=== PATIENT | male | born 2000 | race Hispanic/Latino ===

== ENCOUNTER 2020-07-31 01:16 | Emergency (ER) | payer OTHER, SELFPAY ==
--- NOTE | 2020-07-31 04:37 | ER ---
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 Coronavirus screen: Client denies travel out of the [place] in the last 14 days. Ebola Screen: Patient negative for fever greater than or equal to 101.5 degrees Fahrenheit, and additional compatible Ebola Virus Disease symptoms Patient denies exposure to infectious person. Patient denies travel to an Ebola-affected area in the 21 days before illness onset. No symptoms or risks identified at this time. Initial Sepsis Screen: Does the patient meet any 2 criteria? No. Patient's initial sepsis screen is negative. Does the patient have a suspected source of infection? No. Patient's initial sepsis screen is negative. Risk Assessment: Do you want to hurt yourself or someone else? Patient reports no desire to harm self or others. Onset of symptoms was July 31, 2020. Care prior to arrival: None. Transition of care: patient was not received from another setting of care. 02:55 Acuity: TITUS 4 sg 02:55 Method Of Arrival: Ambulatory sg Triage Assessment: 03:00 General: Appears in no apparent distress. Behavior is calm, cooperative, appropriate ll2 for age. Historical: - Allergies: 02:57 No Known Allergies; sg - PSHx: 02:57 None; sg - Immunization history:: Adult Immunizations not immunized. - Social history:: Smoking status: Patient/guardian denies using. Screenin:00 Abuse screen: Denies threats or abuse. ll2 03:00 Nutritional screening: No deficits noted. Tuberculosis screening: No symptoms or risk ll2 factors identified. Fall Risk None identified. Assessment: 03:00 General: Appears in no apparent distress. Behavior is calm, cooperative, appropriate ll2 for age. Pain: Complains of pain in mouth. Neuro: Level of Consciousness is awake, alert, obeys commands, Oriented to person, place, time, situation. Cardiovascular: Patient's skin is warm and dry. Respiratory: Airway is patent Respiratory effort is even, unlabored, Respiratory pattern is regular, symmetrical. Derm: Skin is intact, is healthy with good turgor, Skin is pink, warm \T\ dry. Musculoskeletal: Circulation, motion, and sensation intact. Range of motion: intact in all extremities. Vital Signs: 02:55 BP 142 / 90; Pulse 89; Resp 18; Temp 97.7; Pulse Ox 100% on R/A; sg ED Course: 01:19 Patient arrived in ED. ag3 02:53 Ray Yanes MD is Attending Physician. kdr 02:56 Triage completed. sg 03:00 Patient has correct armband on for positive identification. Bed in low position. Call ll2 light in reach. Side rails up X 1. Pulse ox on. NIBP on. 03:00 Arm band placed on right wrist. ll2 04:30 No provider procedures requiring assistance completed. Patient did not have IV access ll2 during this emergency room visit. 04:31 Mikaela Owens MD is Referral Physician. kdr 04:46 Marietta Vivas, SANGEETHA is Primary Nurse. ll2 Administered Medications: No medications were administered Outcome: 04:30 Discharged to home ambulatory. ll2 04:30 Condition: stable 04:30 Discharge instructions given to patient, Instructed on discharge instructions, follow up and referral plans. medication usage, Demonstrated understanding of instructions, follow-up care, medications, Prescriptions given X 1. 04:36 Discharge ordered by . kdr 04:46 Patient left the ED. ll2 Signatures: Marshall Larkin RN RN Ray Yanes MD MD [facility] Marti Santos ag3 Marietta Vivas RN RN ll2
--- NOTE | 2020-07-31 04:37 | EDPHYS ---
Physician Documentation [facility] Name: Tad Partida Jr Age: 20 yrs Sex: Male : 2000 Arrival Date: 07/31/2020 Time: 01:19 Bed 15 Private MD: ED Physician Ray Yanes HPI: 07/31 03:03 This 20 yrs old Male presents to ER via Ambulatory with complaints of LOCKED kdr JAW. 03:03 The patient presents with Yawned and jaw locked at about 1:00 AM. The problem is kdr located in the mouth. Onset: The symptoms/episode began/occurred suddenly, at 01:00. Duration: The symptoms are continuous, and are unchanged since they started. Modifying factors: The symptoms are alleviated by nothing, the symptoms are aggravated by talking. Associated signs and symptoms: The patient has no apparent associated signs or symptoms. Severity of symptoms: At their worst the symptoms were mild, moderate, just prior to arrival, in the emergency department the symptoms are unchanged. The patient has experienced a previous episode. The patient has not recently seen a physician. Historical: - Allergies: 02:57 No Known Allergies; sg - PSHx: 02:57 None; sg - Immunization history:: Adult Immunizations not immunized. - Social history:: Smoking status: Patient/guardian denies using. ROS: 03:03 Constitutional: Negative for fever, chills, and weight loss, Eyes: Negative for injury, kdr pain, redness, and discharge, Neck: Negative for injury, pain, and swelling. 03:03 ENT: Positive for Mouth open and unable to close. Exam: 03:03 Constitutional: This is a well developed, well nourished patient who is awake, alert, kdr and in no acute distress. Head/Face: Normocephalic, atraumatic. Eyes: Pupils equal round and reactive to light, extra-ocular motions intact. Lids and lashes normal. Conjunctiva and sclera are non-icteric and not injected. Cornea within normal limits. Periorbital areas with no swelling, redness, or edema. Neck: Trachea midline, no thyromegaly or masses palpated, and no cervical lymphadenopathy. Supple, full range of motion without nuchal rigidity, or vertebral point tenderness. No Meningismus. Chest/axilla: Normal chest wall appearance and motion. Nontender with no deformity. No lesions are appreciated. 03:03 ENT: Mouth: Mouth locked open. Vital Signs: 02:55 BP 142 / 90; Pulse 89; Resp 18; Temp 97.7; Pulse Ox 100% on R/A; sg MDM: 03:03 Data reviewed: vital signs, nurses notes, lab test result(s), radiologic studies. kdr Counseling: I had a detailed discussion with the patient and/or guardian regarding: the historical points, exam findings, and any diagnostic results supporting the discharge/admit diagnosis, the need for outpatient follow up. 04:36 Patient medically screened. kdr Administered Medications: No medications were administered Disposition: 07/31/20 04:36 Discharged to Home. Impression: Temporomandibular joint disorders - Bilateral Joint Dislocation. - Condition is Stable. - Prescriptions for Ibuprofen 800 mg Oral Tablet - take 1 tablet by ORAL route every 8 hours As needed take with food; 9 tablet. - Medication Reconciliation Form, Thank You Letter form. - Follow up: Private Physician; When: 2 - 3 days; Reason: If symptoms return, Further diagnostic work-up, Recheck today's complaints, Continuance of care, Re-evaluation by your physician. Follow up: Mikaela Owens MD; When: 2 - 3 days; Reason: If symptoms return, Further diagnostic work-up, Recheck today's complaints, Continuance of care, Re-evaluation by your physician. - Problem is new. - Symptoms are resolved. Signatures: Marshall Larkin RN RN Ray Yanes MD MD [facility] Marietta Vivas RN RN ll2 Corrections: (The following items were deleted from the chart) 04:46 04:36 07/31/2020 04:36 Discharged to Home. Impression: Temporomandibular joint ll2 disorders - Bilateral Joint Dislocation. Condition is Stable. Forms are Medication Reconciliation Form, Thank You Letter, Antibiotic Education, Prescription Opioid Use. Follow up: Private Physician; When: 2 - 3 days; Reason: If symptoms return, Further diagnostic work-up, Recheck today's complaints, Continuance of care, Re-evaluation by your physician. Follow up: Mikaela Owens; When: 2 - 3 days; Reason: If symptoms return, Further diagnostic work-up, Recheck today's complaints, Continuance of care, Re-evaluation by your physician. Problem is new. Symptoms are resolved. kdr
[2020-07-31 04:50] VITALS: BP 142/90; TEMP 97.7; O2SAT 100
== END 2020-07-31 04:46 | disposition home or self-care (01) ==
LOC: ER 01:16
DX: S03.03XA Dislocation of jaw, bilateral, initial encounter (principal); X58.XXXA Exposure to other specified factors, initial encounter
CPT/HCPCS: 99283

== ENCOUNTER → 2021-06-13 | Emergency (ER) | payer SELFPAY ==
[~2021-06-13] MED LIST: POTASSIUM CL SA 10 MEQ TAB PO ONE
--- OUTSIDE RECORDS SUMMARY | 2021-06-13 02:28 | XMS REPORT | Continuity of Care Document ---
:2000 Author Organization [facility] t Address [address] [place] [address] Care Team Providers Name Role Phone Anabella MENJIVAR Primary Care Physician Unavailable Sahil KHAN Attending Clinician Unavailable Sahil Khan DO Attending Clinician Payers Payer Name Policy Type Policy Number Effective Date Expiration Date S nathanael [facility] - [id number] 2017 00:00:00 OUT OF STATE Problems This patient has no known problems. Allergies, Adverse Reactions, Alerts Allergy Allergy Status Severity Reaction(s) Onset Inactive Treating Comm ents Source Name Type Date Date Clinician NO KNOWN Drug Active Univers ALLERGIE Class ity of [facility] Social History Social Habit Start Date Stop Date Quantity Comments Source Exposure to Not sure [facility] SARS-CoV-2 (event) Medica l Branch Sex Assigned At [birth year] [facility] 00:00:00 00:00:00 Medical Branch Smoking Status Start Date Stop Date Source Unknown if ever smoked [facility] Medications Ordered Filled Start Stop Current Ordering Indication Dosage Frequency Signature Comments Components Source Medication Medication Date Date Medication? Clinician (SIG) Name Name ibuprofen Yes 800mg Take 1 Unive rs 800 mg 5-01 tablet by ity of tablet 00:00: mouth [place] 00 every 8 Medical (eight) Branch hours as needed (PAIN). Vital Signs Vital Name Observation Time Observation Value Comments Source Systolic blood 2021-06-09 17:46:00 154 mm[Hg] Univer sity of pressure [facility] Diastolic blood 2021-06-09 17:46:00 93 mm[Hg] Unive rsity of pressure [facility] Heart rate 2021-06-09 17:45:00 119 /min [facility] Body temperature 2021-06-09 17:45:00 38.67 Cony [facility] Res[facility] rate 2021-06-09 17:45:00 17 /min [facility] Body weight 2021-06-09 17:45:00 117.935 kg [facility] Oxygen saturation in 2021-06-09 17:45:00 96 /min [facility] Arterial blood by [facility] Pulse oximetry Branch Procedures Procedure Date / Time Performed Performing Clinician Sour e NOTICE OF PRIVACY 2021-06-09 17:41:31 Doctor Unassigned, No Univ [facility] PRACTICES Name Medical [place] CONSENT/REFUSAL FOR 2021-06-09 17:40:04 Doctor Unassigned, No [facility] AND Name Medical Branch TREATMENT Encounters Start End Encounter Admission Attending Care Care Encounter Source Date/Time Date/Time Type Type Clinicians Facility Department ID 2021-06-09 2021-06-09 Emergency X ERIN [facility] ERT [id number] Univers 11:47:00 12:30:00 GILMA nash [facility] 2021-06-09 2021-06-09 Emergency Erin [facility] [id number] Univers 11:47:00 12:30:00 Gilma AKERS [id number] charity [facility] [id number] [facility] [id number] [facility] 084 Branch Results This patient has no known results.
== END | disposition left against medical advice (07) ==
LOC: ER 02:26
DX: Z02.9 Encounter for administrative examinations, unspecified (principal)

== ENCOUNTER 2021-08-22 23:48 | Emergency (ER) | payer OTHER, SELFPAY ==
--- OUTSIDE RECORDS SUMMARY | 2021-08-22 23:50 | XMS REPORT | Continuity of Care Document ---
:2000 Author Organization [facility] t Address [address] [place] [address] Care Team Providers Name Role Phone Anabella MENJIVAR Primary Care Physician Unavailable Sahil KHAN Attending Clinician Unavailable Sahil Khan DO Attending Clinician Payers Payer Name Policy Type Policy Number Effective Date [facility] Date [id number] 00:00:00 OUT OF STATE Problems This patient has no known problems. Allergies, Adverse Reactions, Alerts Allergy Allergy Status Severity Reaction(s) Onset Inactive Treating Comm ents Source Name Type Date Date Clinician NO KNOWN Drug Active Univers ALLERGIE Class ity of [facility] Social History Social Habit Start Date Stop Date Quantity Comments Source Exposure to Not sure [facility] SARS-CoV-2 (event) Medica l Branch Sex Assigned At [birth year] [facility] 00:00:00 00:00:00 Medical Branch Smoking Status Start Date Stop Date Source Unknown if ever smoked [facility] Medications Ordered Filled Start Stop Current Ordering Indication Dosage Frequency Signature Comments Components Source Medication Medication Date Date Medication? Clinician (SIG) Name Name ibuprofen Yes 800mg Take 1 Unive rs 800 mg 5-01 tablet by ity of tablet 00:00: mouth [place] 00 every 8 Medical (eight) Branch hours as needed (PAIN). Vital Signs Vital Name Observation Time Observation Value Comments Source Systolic blood 2021-06-09 17:46:00 154 mm[Hg] Univer sity of pressure [facility] Diastolic blood 2021-06-09 17:46:00 93 mm[Hg] Unive rsity of pressure [facility] Heart rate 2021-06-09 17:45:00 119 /min [facility] Body temperature 2021-06-09 17:45:00 38.67 Cony [facility] Respiratory rate 2021-06-09 17:45:00 17 /min [facility] Body weight 2021-06-09 17:45:00 117.935 kg [facility] Oxygen saturation in 2021-06-09 17:45:00 96 /min [facility] Arterial blood by [facility] Pulse oximetry Branch Procedures Procedure Date / Time Performed Performing Clinician Sour e NOTICE OF PRIVACY 2021-06-09 17:41:31 Doctor Unassigned, No Univ [facility] PRACTICES Name Medical Branch CONSENT/REFUSAL FOR 2021-06-09 17:40:04 Doctor Unassigned, No Un [facility] DIAGNOSIS AND Name Medical Branch TREATMENT Encounters Start End Encounter Admission Attending Care Care Encounter Source Date/Time Date/Time Type Type Clinicians Facility Department ID 2021-06-09 2021-06-09 Emergency X ERIN DCALE ERT [id number] Univers 11:47:00 12:30:00 GILMA nash [facility] 2021-06-09 2021-06-09 Emergency Erin [facility] [id number] Univers 11:47:00 12:30:00 Gilma AKERS [id number] charity [facility] [id number] [facility] [id number] [facility] 084 Branch Results This patient has no known results.
--- NOTE | 2021-08-23 00:58 | ER ---
Nurse's Notes [facility] Name: Tad Partida Jr Age: 21 yrs Sex: Male : 2000 Arrival Date: 08/22/2021 Time: 23:50 Bed Waiting Private MD: Diagnosis: Presentation: 08/23 00:57 Chief complaint: Attempted to call patient in lobby. No answer. tw5 ED Course: 08/22 23:50 Patient arrived in ED. ag3 Administered Medications: No medications were administered Outcome: 08/23 00:57 Patient left the ED. tw5 Signatures: Marti Santos ag3 Anisa Weir tw5
== END 2021-08-23 00:57 | disposition left against medical advice (07) ==
LOC: ER 23:48
DX: Z53.21 Procedure and treatment not carried out due to patient leaving prior to being seen by health care provider (principal)
CPT/HCPCS: 99281

== ENCOUNTER 2022-03-03 13:15 | Emergency (ER) | payer OTHER, SELFPAY ==
--- OUTSIDE RECORDS SUMMARY | 2022-03-03 13:20 | XMS REPORT | Continuity of Care Document ---
:2000 Author Organization [facility] t Address [address] [place] [address] Care Team Providers Name Role Phone ROSSY MENJIVAR Primary Care Physician Unavailable MICHELLE WHITING Attending Clinician Unavailable Michelle Estevez Attending Clinician ANGÉLICA DIEGO Attending Clinician Unavailable Angélica Diego MD Attending Clinician GILMA KHAN Attending Clinician Unavailable Gilma Khan DO Attending Clinician MICHELLE WHITING Admitting Clinician Unavailable Payers Payer Name Policy Type Policy Number Effective Date Expiration Date S [facility] - [id number] 2017 00:00:00 OUT OF STATE Problems Condition Condition Condition Status Onset Resolution Last Treating Co mments Source Name Details Category Date Date Treatment Clinician Date No known No known Disease Unive rs active active ity of problems problems [facility] Allergies, Adverse Reactions, Alerts Allergy Allergy Status Severity Reaction(s) Onset Inactive Treating Comm ents Source Name Type Date Date Clinician NO KNOWN Drug Active Univers ALLERGIE Class ity of S [facility] Social History Social Habit Start Date Stop Date Quantity Comments Source Exposure to Not sure [facility] SARS-CoV-2 (event) Medica l Branch Sex Assigned At [birth year] [facility] [place] 00:00:00 00:00:00 Medical Branch Smoking Status Start Date Stop Date Source Unknown if ever smoked [facility] Medications Ordered Filled Start Stop Current Ordering Indication Dosage Frequency Signature Comments Components Source Medication Medication Date Date Medication? Clinician (SIG) Name Name meclizine 25mg 25 mg, Unive rs (TRAVEL-EAS 17 08-29 Oral, ity of E 04:30: 03:35 ONCE, 1 [place] (MECLIZINE) 00 :00 dose, On Medi [facility] ) tablet 25 Wed Branch mg 08/28/21 at 2330, ZOLTAN meclizine Yes [id number] 25mg Take 1 U nivers 25 mg 08-29 tablet by ity of tablet 00:00: mouth 3 [place] 00 (three) Medical times Branch daily as needed for Dizziness. ibuprofen Yes 800mg Take 1 Unive rs 800 mg 5-01 tablet by ity of tablet 00:00: mouth [place] 00 every 8 Medical (eight) Branch hours as needed (PAIN). ibuprofen Yes 800mg Take 1 Unive rs 800 mg 5-01 tablet by ity of tablet 00:00: mouth [place] 00 every 8 Medical (eight) Branch hours as needed (PAIN). ibuprofen Yes 800mg Take 1 Unive rs 800 mg 5-01 tablet by ity of tablet 00:00: mouth [place] 00 every 8 Medical (eight) Branch hours as needed (PAIN). Vital Signs Vital Name Observation Time Observation Value Comments Source Systolic blood 2021-08-29 05:28:00 135 mm[Hg] Univer sity of pressure [facility] Diastolic blood 2021-08-29 05:28:00 79 mm[Hg] Unive rsity of [facility] Heart rate 2021-08-29 05:28:00 69 /min [facility] Respiratory rate 2021-08-29 05:28:00 18 /min [facility] Oxygen saturation in 2021-08-29 05:28:00 98 /min [facility] Arterial blood by [facility] Pulse oximetry Branch Body temperature 2021-08-29 02:30:00 37.06 Cony [facility] Body height 2021-08-29 02:30:00 175.3 cm [facility] Body weight 2021-08-29 02:30:00 127.461 kg [facility] [place] [facility] BMI 2021-08-29 02:30:00 41.50 kg/m2 [facility] [place] [facility] Systolic blood 2021-08-23 08:50:00 145 mm[Hg] Univer sity of [facility] [place] [facility] Diastolic blood 2021-08-23 08:50:00 98 mm[Hg] Unive rsity of [facility] [place] [facility] Heart rate 2021-08-23 08:50:00 95 /min [facility] [place] [facility] Respiratory rate 2021-08-23 08:50:00 18 /min Univ ersity of [facility] Branch Oxygen saturation in 2021-08-23 08:50:00 97 /min University of Arterial blood by [facility] Pulse oximetry Branch Body temperature 2021-08-23 06:51:22 36.39 Cony [facility] [place] [facility] Body height 2021-08-23 06:49:00 175.3 cm [facility] [place] [facility] Body weight 2021-08-23 06:49:00 129.275 kg [facility] [place] [facility] BMI 2021-08-23 06:49:00 42.09 kg/m2 [facility] [place] [facility] Systolic blood 2021-06-09 17:46:00 154 mm[Hg] Univer sity of [facility] [place] [facility] Diastolic blood 2021-06-09 17:46:00 93 mm[Hg] Unive rsity of [facility] [place] [facility] Heart rate 2021-06-09 17:45:00 119 /min [facility] [place] [facility] Body temperature 2021-06-09 17:45:00 38.67 Cony [facility] [place] [facility] Respiratory rate 2021-06-09 17:45:00 17 /min [facility] [place] [facility] Body weight 2021-06-09 17:45:00 117.935 kg Universi ty of [facility] Oxygen saturation in 2021-06-09 17:45:00 96 /min University of Arterial blood by [facility] Pulse oximetry Branch Procedures Procedure Date / Time Performing Clinician Source Performed CT HEAD WO CONTRAST 2021-08-29 04:04:11 [facility] TROPONIN I 2021-08-29 03:47:00 Michelle Whiting [facility] COMP. METABOLIC PANEL 2021-08-29 03:47:00 Michelle Whiting [facility] ([id number]) [facility] CBC WITH DIFF 2021-08-29 03:47[facility]00 [facility]MINAL PRO-BNP 2021-08-29 03:47:00 Michelle Whiting [facility] URINALYSIS 2021-08-29 03:40:00 Iona [facility] NOTICE OF PRIVACY 2021-08-29 02:23:00 Doctor Unassigned, No Univ ersity [facility] CONSENT/REFUSAL FOR 2021-08-29 02:22:16 Doctor Unassigned, No [facility] [place] [facility] T[facility] COMP. METABOLIC PANEL 2021-08-23 07:21:00 Angélica Diego [facility] ([id number]) [facility] Branch ETHANOL 2021-08-23 07:21:00 Angélica Diego [facility] CBC WITH DIFF 2021-08-23 07:21:00 Frandy Angélica [facility] URINALYSIS 2021-08-23 07:21:00 Frandy [facility] URINE DRUG (IMMUNOASSAY) 2021-08-23 07:21:[address] [facility] DRUG Medical [facility] nch SCREEN W/O REFLEX NOTICE OF PRIVACY 2021-08-23 06:34:46 Doctor Unassigned, No Univ ersity of [facility] CONSENT/REFUSAL FOR 2021-08-23 06:34:24 Doctor Unassigned, No [facility] [place] [facility]ATMENT Name [facility] Branch NOTICE OF PRIVACY 2021-06-09 17:41:31 Doctor Unassigned, No Univ ersity of [facility] CONSENT/REFUSAL FOR 2021-06-09 17:40:04 Doctor Unassigned, No [facility] [place] [facility] Branch Encounters Start End Encounter Admission Attending Care Care Encounter Source Date/Time Date/Time Type Type Clinicians Facility Department ID 2021-08-28 2021-08-29 Emergency X IONA [facility] ERT [id number] Univers 21:40:00 00:32:00 MICHELLE clay [facility] 2021-08-28 2021-08-29 [facility] [id number] Univers 21:40:00 00:32:00 Michelle AKERS [id number] i ty of [place] [id number] [facility] [id number] [address] 2021-08-23 2021-08-23 [facility] [id number] Univers 00:43:00 02:56:[address] [facility] 2021-08-23 2021-08-23 [facility] [id number] Univers 00:43:00 02:56:00 Angélica AKERS [id number] i ty of [place] [id number] [facility] [id number] [address] 2021-06-09 2021-06-09 [facility] [id number] Univers 11:47:00 12:30:[address] [facility] 2021-06-09 2021-06-09 [facility] [id number] Univers 11:47:00 12:30:00 Gilma AKERS [id number] ity [facility] [id number] [facility] [id number] [address] Results Test Description Test Time Test Comments Results Result Comments Source N-TERMINAL PRO-BNP 2021-08-29 04:51:02 Test Item Value Reference Range Interpretation Comme nts NT-proBNP (test code = <11 See_Comment [Aut omated message] The [id number]) system which ge nerated this result tra nsmitted reference range : <=125 pg/mL. The refe rence range was not used to interpret this result as normal/abnormal . ELMO (test code = ELMO) Biotin has been reported to cause a negative bias, interpret results relative to patient's use of biotin. Lab Interpretation (test Normal code = 84372-3) [facility] WITH [id number] 04:50:06 Test Item Value Reference Range Interpretation Comments WBC (test code = See_Comment H [Automated 6690-2) message] The sy stem which generated this result transmitted reference range : 4.20 - 10.70 10*3/?L. The reference range was not used to interpret this result as normal/abnormal . RBC (test code = See_Comment [Automated 789-8) message] The sy stem which generated this result transmitted reference range : 4.26 - 5.52 10*6/?L. The reference range was not used to interpret this result as normal/abnormal . HGB (test code = 16.0 g/dL 12.2-16.4 718-7) HCT (test code = 45.6 % 38.4-49.3 4544-3) MCV (test code = 86.4 fL 81.7-95.6 787-2) MCH (test code = 30.3 pg 26.1-32.7 785-6) MCHC (test code = 35.1 g/dL 31.2-35.0 H 786-4) RDW-SD (test code = 40.7 fL 38.5-51.6 44494-1) RDW-CV (test code = 13.0 % 12.1-15.4 788-0) PLT (test code = See_Comment [Automated 777-3) message] The sy stem which generated this result transmitted reference range : 150 - 328 10*3/ ?L. The reference r tutu was not used to interpret this result as normal/abnormal . MPV (test code = 10.2 fL 9.8-13.0 91179-3) NRBC/100 WBC (test See_Comment [Automat ed code = 1117503063) message] The system which generated this result transmitted reference range : 0.0 - 10.0 /100 WBCs. The refer ence range was not u sed to interpret th is result as normal/abnormal . NRBC x10^3 (test code <0.01 See_Comment [Auto mated = 9543131719) message] The s ystem which generated this result transmitted reference range : 10*3/?L. The reference range was not used to interpret this result as normal/abnormal . GRAN MAT (NEUT) % 46.5 % (test code = 770-8) IMM GRAN % (test code 0.30 % = 5565512887) LYMPH % (test code = 41.4 % 736-9) MONO % (test code = 10.2 % 5905-5) EOS % (test code = 0.9 % 713-8) BASO % (test code = 0.7 % 706-2) GRAN MAT x10^3(ANC) 5.91 10*3/uL 1.99-6.95 (test code = 1803265477) IMM GRAN x10^3 (test 0.04 10*3/uL 0.00-0.06 code = 7384889013) LYMPH x10^3 (test code 5.27 10*3/uL 1.09-3.23 H = 731-0) MONO x10^3 (test code 1.30 10*3/uL 0.36-1.02 H = 742-7) EOS x10^3 (test code = 0.11 10*3/uL 0.06-0.53 711-2) BASO x10^3 (test code 0.09 10*3/uL 0.01-0.09 = 704-7) REACT LYMPHS (test Rare code = 7933093200) Lab Interpretation Abnormal (test code = 64734-7) [facility] [id number] 04:38:56 Test Item Value Reference Interpretation Comments Range TROPONIN I (test 0.003 ng/mL See_Comment [Automated code = 3144199347) message] The system which generated this result transmitted reference range : <=0.034. The reference range was not used to interpret this result as normal/abnormal . ELMO (test code = Reference (Normal) ELMO) Range (defined by the 99th percentile reference limit): <= 0.034 ng/mL Note: Cardiac troponin begins to rise 3-4 hours after the onset of ischemia. Repeat in 4-6 hours if the sample was drawn within 3-4 hours of the onset of the symptom and found normal. Diagnosis of myocardial injury is made with acute changes in cTn concentrations with at least one serial sample above the 99th percentile upper reference limit (URL), taken together with the patient's clinical presentation. Biotin has been reported to cause a negative bias, interpret results relative to patient's use of biotin. Lab Interpretation Normal (test code = 33226-8) [facility]. METABOLIC PANEL ([id number])2021-08-29 04:19:34 Test Item Value Reference Range Interpretation Comments NA (test code = 140 mmol/L 135-145 8340744143) K (test code = 4.1 mmol/L 3.5-5.0 9840191162) CL (test code = 102 mmol/L 98-108 1360514424) CO2 TOTAL (test code = 26 mmol/L 23-31 3678028821) AGAP (test code = 2-16 4844453160) BUN (test code = 14 mg/dL 7-23 0123951825) GLUCOSE (test code = 89 mg/dL 70-110 4606553022) CREATININE (test code = 0.70 mg/dL 0.60-1.25 0255140672) TOTAL BILI (test code = 0.6 mg/dL 0.1-1.3 4724637861) CALCIUM (test code = 9.0 mg/dL 8.6-10.6 3637279326) T PROTEIN (test code = 8.2 g/dL 6.3-8.2 4794962499) ALBUMIN (test code = 4.9 g/dL 3.5-5.0 1814574327) ALK PHOS (test code = 60 U/L 34-122 3888832514) ALTv (test code = 126 U/L 5-50 H 1742-6) AST(SGOT) (test code = 52 U/L 13-40 H 7539549418) eGFR (test code = mL/min/1.73m2 7301788419) ELMO (test code = ELMO) Association of Glomerular Filtration Rate (GFR) and Staging of Kidney Disease* + --+ --+ ------+| GFR (mL/min/1.73 m2) ?| With Kidney Damage ?| ?Without Kidney Damage+ --------+ --------+ +| ?>90 ?| ?Stage one ?| ? Normal ?+ ---+ ---+ -------+| ?60-89 ?| ?Stage two ?| ? Decreased GFR ? + --+ --+ ------+| ?30-59 ?| ?Stage three ?| ? Stage three ? + --+ --+ ------+| ?15-29 ?| ?Stage four ? | ? Stage four ?+ ---+ ---+ -------+| ?<15 (or dialysis) ? ?| ?Stage five ? | ? Stage five ?+ ---+ ---+ -------+ *Each stage assumes the associated GFR level has been in effect for at least three months. ?Stages 1 to 5, with or without kidney disease, indicate chronic kidney disease. Notes: Determination of stages one and two (with eGFR >59mL/min/1.73 m2) requires estimation of kidney damage for at least three months as defined by structural or functional abnormalities of the kidney, manifested by either:Pathological abnormalities or Markers of kidney damage (including abnormalities in the composition of the blood or urine or abnormalities in imaging tests). Lab Interpretation Abnormal (test code = 53820-7) [facility] 08:18:12 Test Item Value Reference Range Interpretation Comments ALCOHOL (test code = <10 mg/dL 2467665291) ELMO (test code = ELMO) <10 Cykhhlva42-030 Toxic>100 Depression of CLAY ARTIST>400 Fatalities Reported [facility] MET[facility]OLIC PANEL ([id number])2021-08-23 08:12:10 Test Item Value Reference Range Interpretation Comments NA (test code = 137 mmol/L 135-145 5222949120) K (test code = 4.2 mmol/L 3.5-5.0 4968116627) CL (test code = 99 mmol/L 98-108 6182907132) CO2 TOTAL (test code = 29 mmol/L 23-31 6440174834) AGAP (test code = 2-16 6485211962) BUN (test code = 17 mg/dL 7-23 0083525492) GLUCOSE (test code = 162 mg/dL 70-110 H 8659739602) CREATININE (test code = 0.67 mg/dL 0.60-1.25 6968226962) TOTAL BILI (test code = 0.6 mg/dL 0.1-1.0 0268874319) CALCIUM (test code = 9.0 mg/dL 8.6-10.6 1801544206) T PROTEIN (test code = 7.3 g/dL 6.3-8.2 7672578728) ALBUMIN (test code = 4.5 g/dL 3.5-5.0 7225686041) ALK PHOS (test code = 67 U/L 34-122 6487346929) ALTv (test code = 120 U/L 5-50 H 1742-6) AST(SGOT) (test code = 47 U/L 13-40 H 2836253510) eGFR (test code = mL/min/1.73m2 8482339786) ELMO (test code = ELMO) Association of Glomerular Filtration Rate (GFR) and Staging of Kidney Disease* + --+ --+ ------+| GFR (mL/min/1.73 m2) ?| With Kidney Damage ?| ?Without Kidney Damage+ --------+ --------+ +| ?>90 ?| ?Stage one ?| ? Normal ?+ ---+ ---+ -------+| ?60-89 ?| ?Stage two ?| ? Decreased GFR ? + --+ --+ ------+| ?30-59 ?| ?Stage three ?| ? Stage three ? + --+ --+ ------+| ?15-29 ?| ?Stage four ? | ? Stage four ?+ ---+ ---+ -------+| ?<15 (or dialysis) ? ?| ?Stage five ? | ? Stage five ?+ ---+ ---+ -------+ *Each stage assumes the associated GFR level has been in effect for at least three months. ?Stages 1 to 5, with or without kidney disease, indicate chronic kidney disease. Notes: Determination of stages one and two (with eGFR >59mL/min/1.73 m2) requires estimation of kidney damage for at least three months as defined by structural or functional abnormalities of the kidney, manifested by either:Pathological abnormalities or Markers of kidney damage (including abnormalities in the composition of the blood or urine or abnormalities in imaging tests). Lab Interpretation Abnormal (test code = 53284-0) [facility] WITH [id number] 07:59:12 Test Item Value Reference Range Interpretation Comments WBC (test code = See_Comment [Automated 4304-2) message] The sy stem which generated this result transmitted reference range : 4.20 - 10.70 10*3/?L. The reference range was not used to interpret this result as normal/abnormal . RBC (test code = See_Comment [Automated 789-8) message] The sy stem which generated this result transmitted reference range : 4.26 - 5.52 10*6/?L. The reference range was not used to interpret this result as normal/abnormal . HGB (test code = 15.0 g/dL 12.2-16.4 718-7) HCT (test code = 43.4 % 38.4-49.3 4544-3) MCV (test code = 87.1 fL 81.7-95.6 787-2) MCH (test code = 30.1 pg 26.1-32.7 785-6) MCHC (test code = 34.6 g/dL 31.2-35.0 786-4) RDW-SD (test code = 42.7 fL 38.5-51.6 44394-6) RDW-CV (test code = 13.4 % 12.1-15.4 788-0) PLT (test code = See_Comment [Automated 777-3) message] The sy stem which generated this result transmitted reference range : 150 - 328 10*3/ ?L. The reference r tutu was not used to interpret this result as normal/abnormal . MPV (test code = 10.4 fL 9.8-13.0 91163-5) NRBC/100 WBC (test See_Comment [Automat ed code = 2760464532) message] The system which generated this result transmitted reference range : 0.0 - 10.0 /100 WBCs. The refer ence range was not u sed to interpret th is result as normal/abnormal . NRBC x10^3 (test code <0.01 See_Comment [Auto mated = 3304396817) message] The s ystem which generated this result transmitted reference range : 10*3/?L. The reference range was not used to interpret this result as normal/abnormal . GRAN MAT (NEUT) % 43.3 % (test code = 770-8) IMM GRAN % (test code 0.20 % = 7185180115) LYMPH % (test code = 45.2 % 736-9) MONO % (test code = 8.6 % 5905-5) EOS % (test code = 1.9 % 713-8) BASO % (test code = 0.8 % 706-2) GRAN MAT x10^3(ANC) 3.71 10*3/uL 1.99-6.95 (test code = 0501546281) IMM GRAN x10^3 (test <0.03 0.00-0.06 code = 0810598746) LYMPH x10^3 (test code 3.88 10*3/uL 1.09-3.23 H = 731-0) MONO x10^3 (test code 0.74 10*3/uL 0.36-1.02 = 742-7) EOS x10^3 (test code = 0.16 10*3/uL 0.06-0.53 711-2) BASO x10^3 (test code 0.07 10*3/uL 0.01-0.09 = 704-7) Lab Interpretation Abnormal (test code = 86684-7) [facility]"
[2022-03-03] MEDS ORDERED: LIDOCAINE 1% MPF 30 ML VIAL ONE (15:21)
--- NOTE | 2022-03-03 16:20 | ER ---
Nurse's Notes [facility] Name: Tad Partida Jr Age: 21 yrs Sex: Male : 2000 Arrival Date: 03/03/2022 Time: 13:18 Bed 11 Private MD: Diagnosis: Laceration without foreign body of unspecified finger without damage to nail Presentation: 03/03 14:25 Chief complaint: Patient states: Cut R thumb while working on vehicle, no active ph bleeding noted. Coronavirus screen: Vaccine status: Patient reports being unvaccinated. Ebola Screen: No symptoms or risks identified at this time. Initial Sepsis Screen: Does the patient meet any 2 criteria? No. Patient's initial sepsis screen is negative. Does the patient have a suspected source of infection? No. Patient's initial sepsis screen is negative. Risk Assessment: Do you want to hurt yourself or someone else? Patient reports no desire to harm self or others. Onset of symptoms was March 03, 2022. 14:25 Method Of Arrival: Ambulatory ph 14:25 Acuity: TITUS 4 ph Triage Assessment: 14:29 General: Appears in no apparent distress. Behavior is calm, cooperative. Pain: ph Complains of pain in palmar aspect of distal phalanx of right thumb. Musculoskeletal: Circulation, motion, and sensation intact. Capillary refill < 3 seconds. Injury Description: Laceration sustained to palmar aspect of distal phalanx of right thumb. Historical: - Allergies: 14:28 No Known Allergies; ph - PMHx: 14:28 None; ph - PSHx: 14:28 None; ph - Immunization history:: Adult Immunizations unknown. - Social history:: Smoking status: Patient denies any tobacco usage or history of. Screenin:03 Abuse screen: Denies threats or abuse. Denies injuries from another. Nutritional ph screening: No deficits noted. Tuberculosis screening: No symptoms or risk factors identified. Fall Risk None identified. Assessment: 15:03 General: SEE TRIAGE ASSESSMENT. ph Vital Signs: 14:25 BP 139 / 78; Pulse 82; Resp 18; Temp 97.8; Pulse Ox 100% on R/A; Weight 121.56 kg; ph Height 5 ft. 8 in. (172.72 cm); 16:28 BP 143 / 92; Pulse 73; Resp 16; Pulse Ox 100% on R/A; dh3 14:25 Body Mass Index 40.75 (121.56 kg, 172.72 cm) ph ED Course: 13:18 Patient arrived in ED. rg4 14:00 Josiane Crenshaw FNP-C [facility]. snw 14:00 Mikaela Ayala MD is Attending Physician. snw 14:28 Triage completed. ph 14:28 Arm band placed on Patient placed in an exam room. ph 15:03 Elke Hart, RN is Primary Nurse. ph 15:04 Patient has correct armband on for positive identification. Bed in low position. Call light in reach. Administered Medications: 15:45 Drug: Lidocaine (1 %) 5 ml {Note: administered by ERP.} Volume: 5 ml; Route: jl7 Infiltration; 16:20 Follow up: Response: No adverse reaction jl7 Outcome: 16:19 Discharge ordered by . snw 16:46 Patient left the ED. ph Signatures: Josiane Crenshaw FNP-C CREDIT DEPARTMENT MANAGER-Csnw Elke Hart, RN RN Rosana Monaco rg4 Jason Huang RN RN jl7 Parul Owens 3
--- NOTE | 2022-03-03 16:20 | EDPHYS ---
Physician Documentation [facility] Name: Tad Partida Jr Age: 21 yrs Sex: Male : 2000 Arrival Date: 03/03/2022 Time: 13:18 Bed 11 Private MD: ED Physician Mikaela Ayala HPI: 03/03 16:40 This 21 yrs old Male presents to ER via Ambulatory with complaints of Finger snw Injury. 16:40 The patient or guardian reports injury. The complaints affect the palmar aspect of snw medial phalanx of right thumb. Context: The problem was sustained at home, resulted from working on the car door and it slipped and cut his finger. Onset: The symptoms/episode began/occurred suddenly, just prior to arrival. Associated signs and symptoms: The patient has no apparent associated signs or symptoms. Severity of symptoms: At their worst the symptoms were mild. The patient has experienced a previous episode. The patient has not recently seen a physician. up to date on Tetanus vaccine. Historical: - Allergies: 14:28 No Known Allergies; ph - PMHx: 14:28 None; ph - PSHx: 14:28 None; ph - Immunization history:: Adult Immunizations unknown. - Social history:: Smoking status: Patient denies any tobacco usage or history of. ROS: 16:39 Constitutional: Negative for fever, chills, and weight loss, Eyes: Negative for injury, snw pain, redness, and discharge, ENT: Negative for injury, pain, and discharge, Neck: Negative for injury, pain, and swelling, Cardiovascular: Negative for chest pain, palpitations, and edema, Respiratory: Negative for shortness of breath, cough, wheezing, and pleuritic chest pain, Abdomen/GI: Negative for abdominal pain, nausea, vomiting, diarrhea, and constipation, Back: Negative for injury and pain, : Negative for injury, bleeding, discharge, and swelling, MS/Extremity: Negative for injury and deformity, Neuro: Negative for headache, weakness, numbness, tingling, and seizure, Psych: Negative for depression, anxiety, suicide ideation, homicidal ideation, and hallucinations. 16:39 Skin: Positive for laceration(s), of the palmar aspect of medial phalanx of right thumb. Exam: 16:38 Constitutional: This is a well developed, well nourished patient who is awake, alert, snw and in no acute distress. Head/Face: Normocephalic, atraumatic. Eyes: Pupils equal round and reactive to light, extra-ocular motions intact. Lids and lashes normal. Conjunctiva and sclera are non-icteric and not injected. Cornea within normal limits. Periorbital areas with no swelling, redness, or edema. ENT: Nares patent. No nasal discharge, no septal abnormalities noted. Tympanic membranes are normal and external auditory canals are clear. Oropharynx with no redness, swelling, or masses, exudates, or evidence of obstruction, uvula midline. Mucous membranes moist. Neck: Trachea midline, no thyromegaly or masses palpated, and no cervical lymphadenopathy. Supple, full range of motion without nuchal rigidity, or vertebral point tenderness. No Meningismus. Chest/axilla: Normal chest wall appearance and motion. Nontender with no deformity. No lesions are appreciated. Cardiovascular: Regular rate and rhythm with a normal S1 and S2. No gallops, murmurs, or rubs. Normal PMI, no JVD. No pulse deficits. Respiratory: Lungs have equal breath sounds bilaterally, clear to auscultation and percussion. No rales, rhonchi or wheezes noted. No increased work of breathing, no retractions or nasal flaring. Abdomen/GI: Soft, non-tender, with normal bowel sounds. No distension or tympany. No guarding or rebound. No evidence of tenderness throughout. Back: No spinal tenderness. No costovertebral tenderness. Full range of motion. MS/ Extremity: Pulses equal, no cyanosis. Neurovascular intact. Full, normal range of motion. Neuro: Awake and alert, GCS 15, oriented to person, place, time, and situation. Cranial nerves II-XII grossly intact. Motor strength 5/5 in all extremities. Sensory grossly intact. Cerebellar exam normal. Normal gait. Psych: Awake, alert, with orientation to person, place and time. Behavior, mood, and affect are within normal limits. 16:38 Skin: Appearance: normal except for affected area, injury, laceration(s), the wound is approximately 3 cm(s), with a depth of 1 cm(s), of the palmar aspect of medial phalanx of right thumb. Vital Signs: 14:25 BP 139 / 78; Pulse 82; Resp 18; Temp 97.8; Pulse Ox 100% on R/A; Weight 121.56 kg; ph Height 5 ft. 8 in. (172.72 cm); 16:28 BP 143 / 92; Pulse 73; Resp 16; Pulse Ox 100% on R/A; dh3 14:25 Body Mass Index 40.75 (121.56 kg, 172.72 cm) ph MDM: 15:06 Patient medically screened. snw 16:16 Data reviewed: vital signs, nurses notes. Data interpreted: Pulse oximetry: on room air snw is 100 %. Interpretation: normal. Counseling: I had a detailed discussion with the patient and/or guardian regarding: the historical points, exam findings, and any diagnostic results supporting the discharge/admit diagnosis, the presence of at least one elevated blood pressure reading (>120/80) during this emergency department visit, the need for outpatient follow up, to return to the emergency department if symptoms worsen or persist or if there are any questions or concerns that arise at home. Special discussion: Based on the history and exam findings, there is no indication for further emergent testing or inpatient evaluation. I discussed with the patient/guardian the need to see the primary care provider for further evaluation of the symptoms. 03/03 15:10 Order name: Dressing - Wound; Complete Time: 15:22 snw 03/03 15:10 Order name: Gloves, Sterile; Complete Time: 15:22 snw 03/03 15:10 Order name: Setup Suture Tray; Complete Time: 15:21 snw Administered Medications: 15:45 Drug: Lidocaine (1 %) 5 ml {Note: administered by ERP.} Volume: 5 ml; Route: jl7 Infiltration; 16:20 Follow up: Response: No adverse reaction jl7 Disposition: 03/04 07:33 STAFF ATTESTATION STATEMENT: I was immediately available onsite in the emergency sd2 department for consultation in the care of this patient. I did not see or examine this patient. Mikaela Ayala MD. Disposition Summary: 03/03/22 16:19 Discharge Ordered Location: Home snw Condition: Stable snw Diagnosis - Laceration without foreign body of unspecified finger without damage to nail snw Followup: snw - With: Emergency Department - When: As needed - Reason: Worsening of condition Followup: snw - With: Private Physician - When: 1 - 2 days - Reason: Recheck today's complaints, Continuance of care, Re-evaluation by your physician Discharge Instructions: - Discharge Summary Sheet snw - Laceration Care, Adult snw - Suture Removal, Care After snw - Sutured Wound Care snw - Wound Care, Adult snw Forms: - Medication Reconciliation Form snw - Thank You Letter snw - Antibiotic Education snw - Prescription Opioid Use snw Signatures: Josiane Crenshaw FNP-C SCIENTIFIC PHOTOGRAPHER-Csnw Elke Hart, RN RN ph Jason Huang RN RN jl7 Mikaela Ayala MD MD sd2
[2022-03-04 20:23] VITALS: TEMP 97.8; O2SAT 100
[2022-03-04 20:25] VITALS: BP 143/92
== END 2022-03-03 16:46 | disposition home or self-care (01) ==
LOC: ER 13:15
DX: S61.011A Laceration without foreign body of right thumb without damage to nail, initial encounter (principal)
CPT/HCPCS: 99282

== ENCOUNTER 2023-05-12 08:34 | Emergency (ER) | payer OTHER ==
--- OUTSIDE RECORDS SUMMARY | 2023-05-12 08:39 | XMS REPORT | Continuity of Care Document ---
:2000 Author Organization [facility] t Address [address] [place] [address] [address] [place] [address] Care Team Providers Name Role Phone ROSSY MENJIVAR Primary Care Physician Unavailable MICHELLE WHITING Attending Clinician Unavailable Michelle Estevez Attending Clinician ANGÉLICA DIEGO Attending Clinician Unavailable Angélica Diego MD Attending Clinician GILMA KHAN Attending Clinician Unavailable Gilma Khan DO Attending Clinician MICHELLE WHITING Admitting Clinician Unavailable Payers Payer Name Policy Type Policy Number Effective Date Expiration Date [facility] - [id number] 2017 00:00:00 OUT OF STATE Problems Condition Condition Condition Status Onset Resolution Last Treating Co mments Source Name Details Category Date Date Treatment Clinician Date No known No known Disease Unive rs active active ity of problems problems [facility] Allergies, Adverse Reactions, Alerts Allergy Allergy Status Severity Reaction(s) Onset Inactive Treating Comm ents Source Name Type Date Date Clinician NO KNOWN Drug Active Univers ALLERGIE Class ity of S [facility] Social History Social Habit Start Date Stop Date Quantity Comments Source Exposure to Not sure [facility] SARS-CoV-2 (event) Medica l Branch Sex Assigned At [birth year] [facility] 00:00:00 00:00:00 Medical Branch Smoking Status Start Date Stop Date Source Unknown if ever smoked [facility] Medications Ordered Filled Start Stop Current Ordering Indication Dosage Frequency Signature Comments Components Source Medication Medication Date Date Medication? Clinician (SIG) Name Name meclizine 25mg 25 mg, Unive rs (TRAVEL-EAS 08-2917 Oral, ity of E 04:30: 03:35 ONCE, 1 [place] (MECLIZINE) 00 :00 dose, On Medi eveline ) tablet 25 Wed Branch mg 08/28/21 at 2330, ZOLTAN meclizine Yes [id number] 25mg Take 1 U nivers 25 mg 17 tablet by ity of tablet 00:00: mouth [...] 05:28:00 135 mm[Hg] Univer sity of pressure [facility] Diastolic blood 2021-08-29 05:28:00 79 mm[Hg] Unive rsity of [facility] Heart rate 2021-08-29 05:28:00 69 /min [facility] Respiratory rate 2021-08-29 05:28:00 18 /min [facility] Oxygen saturation in 2021-08-29 05:28:00 98 /min [facility] Arterial blood by [facility] Pulse oximetry Branch Body temperature 2021-08-29 02:30:00 37.06 Cony [facility] Body height 2021-08-29 02:30:00 175.3 cm [facility] Body weight 2021-08-29 02:30:00 127.461 kg [facility] BMI 2021-08-29 02:30:00 41.50 kg/m2 [facility] Systolic blood 2021-08-23 08:50:00 145 mm[Hg] [facility]iver [facility] Diastolic blood 2021-08-23 08:50:00 98 mm[Hg] Unive rsity [facility] Heart rate 2021-08-23 08:50:00 95 /min [facility] Respiratory rate 2021-08-23 08:50:00 18 /min Univ ersity of [facility] Branch Oxygen saturation in 2021-08-23 08:50:00 97 /min [facility] Arterial blood by [facility] Pulse oximetry Branch Body temperature 2021-08-23 06:51:22 36.39 Cony [facility] Body height 2021-08-23 06:49:00 175.3 cm [facility] Body weight 2021-08-23 06:49:00 129.275 kg [facility] BMI 2021-08-23 06:49:00 42.09 kg/m2 [facility] Systolic blood 2021-06-09 17:46:00 154 mm[Hg] [facility]iver [facility] Diastolic blood 2021-06-09 17:46:00 93 mm[Hg] Unive rsity [facility] Heart rate 2021-06-09 17:45:00 119 /min [facility] Body temperature 2021-06-09 17:45:00 38.67 Cony [facility] Respiratory rate 2021-06-09 17:45:00 17 /min [facility] Body weight 2021-06-09 17:45:00 117.935 kg [facility] [place] [facility] [place] Oxygen saturation in 2021-06-09 17:45:00 96 /min [facility] of Arterial blood by [facility] eveline Pulse oximetry Branch Procedures Procedure Date / Time Performing Clinician Source Performed CT HEAD WO CONTRAST 2021-08-29 04:04[facility]11 [facility] 03[facility]47[facility] MET[facility]OLIC PANEL 2021-08-29 03:47:00 Michelle Whiting [facility] ([id number]) [facility] CBC WITH DIFF 2021-08-29 03:47:00 Henok [facility] N-TERMINAL PRO-BNP 2021-08-29 03:47:00 Michelle Whiting [facility] URINALYSIS 2021-08-29 03:40:00 Henok [facility] NOTICE OF PRIVACY 2021-08-29 02:23:00 Doctor Unassigned, No Univ ersity of [facility] CONSENT/REFUSAL FOR 2021-08-29 02:22:16 Doctor Unassigned, No [facility] [place] [facility] COMP. METABOLIC PANEL 2021-08-23 07:21:00 Angélica Diego [facility] ([id number]) [facility] Branch ETHANOL 2021-08-23 07:21:00 Angélica Diego [facility] CBC WITH DIFF 2021-08-23 07:21:00 Frandy [facility] URINALYSIS 2021-08-23 07:21:00 Frandy [facility] URINE DRUG (IMMUNOASSAY) 2021-08-23 07:21:00 Angélica Diego [facility] COMPREHENSIVE DRUG Medical [facility] nc SCREEN W/O REFLEX NOTICE OF PRIVACY 2021-08-23 06:34:46 Doctor Unassigned, No Univ ersity of [facility] CONSENT/REFUSAL FOR 2021-08-23 06:34:24 Doctor Unassigned, No [facility] [place] [facility] NOTICE OF PRIVACY 2021-06-09 17:41:31 Doctor Unassigned, No Univ ers[facility] of [facility] CONSENT/REFUSAL FOR 2021-06-09 17:40:04 Doctor Unassigned, No [facility] [place] [facility] Encounters Start End Encounter Admission Attending Care Care Encounter Source Date/Time Date/Time Type Type Clinicians Facility Department ID 2021-08-28 2021-08-29 Emergency X JOSE WHITINGMB ERT [id number] Univers 21:40:00 00:32:00 MICHELLE nash [facility] 2021-08-28 2021-08-29 Emergency [facility] [id number] Univers 21:40:00 00:32:00 Michelle AKERS [id number] i ty of [place] [id number] [facility] [id number] [address] 2021-08-23 2021-08-23 [facility] [id number] Univers 00:43:00 02:56:00 ANGÉLICA clay [facility] 2021-08-23 2021-08-23 [facility] [id number] Univers 00:43:00 02:56:00 Angélica AKERS [id number] i ty of [place] [id number] [facility] [id number] [address] 2021-06-09 2021-06-09 [facility] [id number] Univers 11:47:00 12:30:00 GILMA nash [facility] 2021-06-09 2021-06-09 [facility] [id number] Univers 11:47:00 12:30:00 Gilma AKERS [id number] ity [facility] [id number] [facility] [id number] [address] Results Test Description Test Time Test Comments Results Result Comments Source N-TERMINAL PRO-BNP 2021-08-29 04:51:02 Test Item Value Reference Range Interpretation Comme nts NT-proBNP (test code = <11 See_Comment [Aut omated message] The 2768891601) system which ge nerated this result tra nsmitted reference range : <=125 pg/mL. The refe rence range was not used to interpret this result as normal/abnormal . ELMO (test code = ELMO) Biotin has been reported to cause a negative bias, interpret results relative to patient's use of biotin. Lab Interpretation (test Normal code = 27333-4) [facility] WITH [id number] 04:50:06 Test Item Value Reference Range Interpretation [...] RDW-SD (test code = 40.7 fL 38.5-51.6 88693-9) RDW-CV (test code = 13.0 % 12.1-15.4 788-0) PLT (test code = See_Comment [Automated 777-3) message] The sy stem which generated this result transmitted reference range : 150 - 328 10*3/ ?L. The reference r tutu was not used to interpret this result as normal/abnormal . MPV (test code = 10.2 fL 9.8-13.0 37211-7) NRBC/100 WBC (test See_Comment [Automat ed code = 2247959594) message] The system which generated this result transmitted reference range : 0.0 - 10.0 /100 WBCs. The refer ence range was not u sed to interpret th is result as normal/abnormal . NRBC x10^3 (test code <0.01 See_Comment [Auto mated = 2767938162) message] The s ystem which generated this result transmitted reference range : 10*3/?L. The reference range was not used to interpret this result as normal/abnormal . GRAN MAT (NEUT) % 46.5 % (test code = 770-8) IMM GRAN % (test code 0.30 % = 9527851634) LYMPH % (test code = 41.4 % 736-9) MONO % (test code = 10.2 % 5905-5) EOS % (test code = 0.9 % 713-8) BASO % (test code = 0.7 % 706-2) GRAN MAT x10^3(ANC) 5.91 10*3/uL 1.99-6.95 (test code = 4443667388) IMM GRAN x10^3 (test 0.04 10*3/uL 0.00-0.06 code = 0915838337) LYMPH x10^3 (test code 5.27 10*3/uL 1.09-3.23 H = 731-0) MONO x10^3 (test code 1.30 10*3/uL 0.36-1.02 H = 742-7) EOS x10^3 (test code = 0.11 10*3/uL 0.06-0.53 711-2) BASO x10^3 (test code 0.09 10*3/uL 0.01-0.09 = 704-7) REACT LYMPHS (test Rare code = 6231212192) Lab Interpretation Abnormal (test code = 97480-2) [id number] 04:38:56 Test Item Value Reference Interpretation Comments Range TROPONIN I (test 0.003 ng/mL See_Comment [Automated code = 9024016122) message] The system which generated this result [...] biotin. Lab Interpretation Normal (test code = 33940-1) [facility]. METABOLIC PANEL ([id number])2021-08-29 04:19:34 Test Item Value Reference Range Interpretation Comments NA (test code = 140 mmol/L 135-145 3227438317) K (test code = 4.1 mmol/L 3.5-5.0 7305433817) CL (test code = 102 mmol/L 98-108 9423511657) CO2 TOTAL (test code = 26 mmol/L 23-31 6651302603) AGAP (test code = 2-16 1585943321) BUN (test code = 14 mg/dL 7-23 0869087795) GLUCOSE (test code = 89 mg/dL 70-110 6215103935) CREATININE (test code = 0.70 mg/dL 0.60-1.25 0944212864) TOTAL BILI (test code = 0.6 mg/dL 0.1-1.9 3830390614) CALCIUM (test code = 9.0 mg/dL 8.6-10.6 5237154103) T PROTEIN (test code = 8.2 g/dL 6.3-8.2 2333639313) ALBUMIN (test code = 4.9 g/dL 3.5-5.0 0132665564) ALK PHOS (test code = 60 U/L 34-122 1198299978) ALTv (test code = 126 U/L 5-50 H 1742-6) AST(SGOT) (test code = 52 U/L 13-40 H 5774340307) eGFR (test code = mL/min/1.73m2 7947121394) ELMO (test code = ELMO) Association of [...] tests). Lab Interpretation Abnormal (test code = 71563-7) [facility]12 Test Item Value Reference Range Interpretation Comments ALCOHOL (test code = <10 mg/dL 4070413995) ELMO (test code = ELMO) <10 [id number] Toxic>100 Depression of INTERPRETATIVE DANCER>400 [facility]ities [facility]orted [facility] ([id number])2021-08-23 08:12:10 Test Item Value Reference Range Interpretation Comments NA (test code = 137 mmol/L 135-145 5154457195) K (test code = 4.2 mmol/L 3.5-5.0 7388370434) CL (test code = 99 mmol/L 98-108 9420857604) CO2 TOTAL (test code = 29 mmol/L 23-31 0551666795) AGAP (test code = 2-16 2784487396) BUN (test code = 17 mg/dL 7-23 3712703558) GLUCOSE (test code = 162 mg/dL 70-110 H 7672120483) CREATININE (test code = 0.67 mg/dL 0.60-1.25 7928764769) TOTAL BILI (test code = 0.6 mg/dL 0.1-1.1 3236655658) CALCIUM (test code = 9.0 mg/dL 8.6-10.6 1715447575) T PROTEIN (test code = 7.3 g/dL 6.3-8.2 8741747388) ALBUMIN (test code = 4.5 g/dL 3.5-5.0 4744236170) ALK PHOS (test code = 67 U/L 34-122 8051043926) ALTv (test code = 120 U/L 5-50 H 1742-6) AST(SGOT) (test code = 47 U/L 13-40 H 4111862392) eGFR (test code = mL/min/1.73m2 0932220481) ELMO (test code = ELMO) Association of [...] tests). Lab Interpretation Abnormal (test code = 21421-2) [facility] WITH [id number] 07:59:12 Test Item Value Reference Range Interpretation Comments WBC (test code = See_Comment [Automated 9990-2) message] The sy stem which generated this [...] RDW-SD (test code = 42.7 fL 38.5-51.6 27509-4) RDW-CV (test code = 13.4 % 12.1-15.4 788-0) PLT (test code = See_Comment [Automated 777-3) message] The sy stem which generated this result transmitted reference range : 150 - 328 10*3/ ?L. The reference r tutu was not used to interpret this result as normal/abnormal . MPV (test code = 10.4 fL 9.8-13.0 72078-3) NRBC/100 WBC (test See_Comment [Automat ed code = 3283842453) message] The system which generated this result transmitted reference range : 0.0 - 10.0 /100 WBCs. The refer ence range was not u sed to interpret th is result as normal/abnormal . NRBC x10^3 (test code <0.01 See_Comment [Auto mated = 2904246879) message] The s ystem which generated this result transmitted reference range : 10*3/?L. The reference range was not used to interpret this result as normal/abnormal . GRAN MAT (NEUT) % 43.3 % (test code = 770-8) IMM GRAN % (test code 0.20 % = 7194724729) LYMPH % (test code = 45.2 % 736-9) MONO % (test code = 8.6 % 5905-5) EOS % (test code = 1.9 % 713-8) BASO % (test code = 0.8 % 706-2) GRAN MAT x10^3(ANC) 3.71 10*3/uL 1.99-6.95 (test code = 8964719950) IMM GRAN x10^3 (test <0.03 0.00-0.06 code = 1199940946) LYMPH x10^3 (test code 3.88 10*3/uL 1.09-3.23 H = 731-0) MONO x10^3 (test code 0.74 10*3/uL 0.36-1.02 = 742-7) EOS x10^3 (test code = 0.16 10*3/uL 0.06-0.53 711-2) BASO x10^3 (test code 0.07 10*3/uL 0.01-0.09 = 704-7) Lab Interpretation Abnormal (test code = 10344-8) [facility]"
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
[2023-05-12 09:55] VITALS: BP 140/96; O2SAT 97
== END 2023-05-12 09:46 | disposition home or self-care (01) ==
LOC: ER 08:34
DX: S40.021A Contusion of right upper arm, initial encounter (principal); V49.59XA Passenger injured in collision with other motor vehicles in traffic accident, initial encounter
CPT/HCPCS: 99284

== ENCOUNTER → 2023-06-03 | Emergency (ER) | payer OTHER, SELFPAY ==
--- OUTSIDE RECORDS SUMMARY | 2023-06-03 08:45 | XMS REPORT | Continuity of Care Document ---
Author Name Unknown Address [address] [place] [address] [facility] thconnect Address [address] [place] [address] Care Team Providers Care Drop Wire Hanger Name Role Phone ROSSY MENJIVAR Primary Care Physician Un available MENA WHITING Attending Clinician Unavailable Mena Estevez Attending Clinician [phone] MAYUR DIEGO Attending Clinician Unavailable Mayur Diego MD Attending Clinician [phone] GILMA KHAN Attending Clinician Unavailab Gilma Zacarias DO Attending Clinician [phone] MENA WHITING Admitting Clinician Unavailable Payers Payer Name Policy Type Policy Number Effective Date Expirati on Date Source [facility] [id number] 2017 00:00:00 Problems Condition Name Condition Details Condition Category Status Onset Date Resolution Date Last Treatment Date Treating Clinician Comments Source No known active problems No known active problems Disease [facility] Allergies, Adverse Reactions, Alerts Allergy Name Allergy Type Status Severity Reaction(s) Onset Date Inactive Date Treating Clinician Comments Source NO KNOWN ALLERGIE S Drug Class Active [facility] Social History Social Habit Start Date Stop Date Quantity Comments Source [facility]-2 [facility] 2000 [facility]00 2000 00:00:00 [facility] Smoking Status Start Date Stop Date Source Unknown if ever smoked [facility] Medications Ordered Medication Name Filled Medication Name Start Date Stop Date Current Medication? Ordering Clinician Indication Dosage Frequency Signature (SIG) Comments Components Source meclizine (TRAVEL-EAS E (MECLIZINE) ) tablet 25 mg 08-29 04:30: 00 08-29 03:35 :00 No 25mg 25 mg, Oral, ONCE, 1 dose, On Thu08/28/21 at 2330, [facility] meclizine 25 mg tablet 08-29 00:00: 00 Yes [id number] 25mg Take 1 tablet by mouth 3 (three) times daily as needed for Dizziness. [facility] ibuprofen 800 mg tablet 10-13 00:00: 00 Yes 800mg Take 1 tablet by mouth every 8 (eight) hours as needed (PAIN). [facility] ibuprofen 800 mg tablet 10-13 00:00: 00 Yes 800mg Take 1 tablet by mouth every 8 (eight) hours as needed (PAIN). [facility] ibuprofen 800 mg tablet 10-13 00:00: 00 Yes 800mg Take 1 tablet by mouth every 8 (eight) hours as needed (PAIN). [facility] Vital Signs Vital Name Observation Time Observation Value Comments S nathanael Systolic blood pressure 2021-08-29 05:28:00 135 mm[Hg] [facility] Diastolic blood pressure 2021-08-29 05:28:00 79 mm[Hg] [facility] acute hospital Heart rate 2021-08-29 05:28:00 69 /min [facility] Respiratory rate 2021-08-29 05:28:00 18 /min [facility] Oxygen saturation in Arterial blood by Pulse oximetry 2021-08-29 05:28:00 98 /min [facility] acute hospital Body temperature 2021-08-29 02:30:00 37.06 Cony [facility] Body height 2021-08-29 02:30:00 175.3 cm [facility] Body weight 2021-08-29 02:30:00 127.461 kg [facility] BMI 2021-08-29 02:30:00 41.50 kg/m2 [facility] Systolic blood pressure 2021-08-23 08:50:00 145 mm[Hg] General acute hospital Diastolic blood pressure 2021-08-23 08:50:00 98 mm[Hg] General acute hospital Heart rate 2021-08-23 08:50:00 95 /min Un[facility] Respiratory rate 2021-08-23 08:50:00 18 /min [facility] Oxygen saturation in Arterial blood by Pulse oximetry 2021-08-23 08:50:00 97 /min [facility] acute hospital Body temperature 2021-08-23 06:51:22 36.39 Cony [facility] Body height 2021-08-23 06:49:00 175.3 cm [facility] Body weight 2021-08-23 06:49:00 129.275 kg [facility] BMI 2021-08-23 06:49:00 42.09 kg/m2 [facility] Systolic blood pressure 2021-06-09 17:46:00 154 mm[Hg] General acute hospital Diastolic blood pressure 2021-06-09 17:46:00 93 mm[Hg] General acute hospital Heart rate 2021-06-09 17:45:00 119 /min [facility] Body temperature 2021-06-09 17:45:00 38.67 Cony [facility] Respiratory rate 2021-06-09 17:45:00 17 /min [facility] Body weight 2021-06-09 17:45:00 117.935 kg [facility] Oxygen saturation in Arterial blood by Pulse oximetry 2021-06-09 17:45:00 96 /min [facility] acute hospital Procedures Procedure Date / Time Performed Performing Clinician Source CT HEAD WO CONTRAST 2021-08-29 04:04:11 Amelia Whiting [facility] TROPONIN I 2021-08-29 03:47:00 Mena Whiting [facility] COMP. METABOLIC PANEL ([id number]) 2021-08-29 03:47:00 Mena Whiting [facility] CBC WITH DIFF 2021-08-29 03:47:00 Mena Whiting [facility] N-TERMINAL PRO-BNP 2021-08-29 03:47:00 Ade Whiting [facility] URINALYSIS 2021-08-29 03:40:00 Mena Whiting [facility] NOTICE OF PRIVACY PRACTICES 2021-08-29 02:23:00 Doctor Unassigned, [place] [facility] CONSENT/REFUSAL FOR DIAGNOSIS AND TREATMENT 2021-08-29 02:22:16 Doctor Unassigned, [place] [facility] COMP. METABOLIC PANEL ([id number]) 2021-08-23 07:21:00 Mayur Diego [facility] ETHANOL 2021-08-23 07:21:00 Mayur Diego [facility] CBC WITH DIFF 2021-08-23 07:21:00 Mayur Diego [facility] URINALYSIS 2021-08-23 07:21:00 Mayur Diego [facility] URINE DRUG (IMMUNOASSAY) - COMPREHENSIVE DRUG SCREEN W/O REFLEX 2021-08-23 07:21:00 Mayur Diego [facility] NOTICE OF PRIVACY PRACTICES 2021-08-23 06:34:46 Doctor Unassigned, [place] [facility] CONSENT/REFUSAL FOR DIAGNOSIS AND TREATMENT 2021-08-23 06:34:24 Doctor Unassigned, [place] [facility] NOTICE OF PRIVACY PRACTICES 2021-06-09 17:41:31 Doctor Unassigned, [place] [facility] CONSENT/REFUSAL FOR DIAGNOSIS AND TREATMENT 2021-06-09 17:40:04 Doctor Unassigned, [place] [facility] Encounters Start Date/Time End Date/Time Encounter Type Admission Type Attending [facility] Care Facility Care Department Encounter ID Source 2021-08-28 21:40:00 2021-08-29 00:32:00 Emergency X MENA WHITING [facility] ERT [id number] [facility] 2021-08-28 21:40:00 2021-08-29 00:32:00 Emergency Mena Whiting [facility] [id number] [facility] 2021-08-23 00:43:00 2021-08-23 02:56:00 Emergency X MAYUR DIEGO [facility] ERT [id number] [facility] 2021-08-23 00:43:00 2021-08-23 02:56:00 Emergency Mayur Diego [facility] [id number] [facility] 2021-06-09 11:47:00 2021-06-09 12:30:00 Emergency GILMA VENTURA [facility] ERT [id number] [facility] 2021-06-09 11:47:00 2021-06-09 12:30:00 Emergency Gilma Khan [facility] [id number] [facility] Results Test Description Test Time Test Comments Results Result Co mments Source [facility] WITH [id number] 04:50:06* Test Item Value Reference Range Interpretation Comme nts WBC (test code = 6690-2) See_Comment H [Automated messa ge] The system which generated this result transmitted reference range: 4.20 - 10.70 10*3/?L. The reference range was not used to interpret this result as normal/abnormal. RBC (test code = 789-8) See_Comment [Automated messa ge] The system which generated this result transmitted reference range: 4.26 - 5.52 10*6/?L. The reference range was not used to interpret this result as normal/abnormal. HGB (test code = 718-7) 16.0 g/dL 12.2-16.4 HCT (test code = 4544-3) 45.6 % 38.4-49.3 MCV (test code = 787-2) 86.4 fL 81.7-95.6 MCH (test code = 785-6) 30.3 pg 26.1-32.7 MCHC (test code = 786-4) 35.1 g/dL 31.2-35.0 H RDW-SD (test code = 25196-0) 40.7 fL 38.5-51.6 RDW-CV (test code = 788-0) 13.0 % 12.1-15.4 PLT (test code = 777-3) See_Comment [Automated messa ge] The system which generated this result transmitted reference range: 150 - 328 10*3/?L. The reference range was not used to interpret this result as normal/abnormal. MPV (test code = 01851-2) 10.2 fL 9.8-13.0 NRBC/100 WBC (test code = 7073513022) See_Comment [Automated Goby ssage] The system which generated this result transmitted reference range: 0.0 - 10.0 /100 WBCs. The reference range was not used to interpret this result as normal/abnormal. NRBC x10^3 (test code = 4856125263) <0.01 See_Comment [Automated [employer] ge] The system which generated this result transmitted reference range: 10*3/?L. The reference range was not used to interpret this result as normal/abnormal. GRAN MAT (NEUT) % (test code = 770-8) 46.5 % IMM GRAN % (test code = 7172533870) 0.30 % LYMPH % (test code = 736-9) 41.4 % MONO % (test code = 5905-5) 10.2 % EOS % (test code = 713-8) 0.9 % BASO % (test code = 706-2) 0.7 % GRAN MAT x10^3(ANC) (test code = 4902164137) 5.91 10*3/uL 1.99-6.95 IMM GRAN x10^3 (test code = 0037717923) 0.04 10*3/uL 0.00-0.06 LYMPH x10^3 (test code = 731-0) 5.27 10*3/uL 1.09-3.23 H MONO x10^3 (test code = 742-7) 1.30 10*3/uL 0.36-1.02 H EOS x10^3 (test code = 711-2) 0.11 10*3/uL 0.06-0.53 BASO x10^3 (test code = 704-7) 0.09 10*3/uL 0.01-0.09 REACT LYMPHS (test code = 3993024903) Rare Lab Interpretation (test code = 65188-4) [id number] 04:38:56* Test Item Value Reference Range Interpretation Comments TROPONIN I (test code = 5545344460) 0.003 ng/mL See_Comment [Automated message] The system which generated this result transmitted reference range: <=0.034. The reference range was not used to interpret this result as normal/abnormal. ELMO (test code = ELMO) Reference (Normal) Range (defined by the 99th percentile reference [...] patient's use of biotin. Lab Interpretation (test code = 76265-8) [id number]20[facility]-29 04:19:34* Test Item Value Reference Range Interpretation Comme nts NA (test code = 2799990134) 140 mmol/L 135-145 K (test code = 9310797183) 4.1 mmol/L 3.5-5.0 CL (test code = 5857487248) 102 mmol/L 98-108 CO2 TOTAL (test code = 8870693698) 26 mmol/L 23-31 AGAP (test code = 6043257570) 2-16 BUN (test code = 7161307058) 14 mg/dL 7-23 GLUCOSE (test code = 6146157890) 89 mg/dL 70-110 CREATININE (test code = 3622141051) 0.70 mg/dL 0.60-1.25 TOTAL BILI (test code = 0139800460) 0.6 mg/dL 0.1-1.1 CALCIUM (test code = 1495594432) 9.0 mg/dL 8.6-10.6 T PROTEIN (test code = 8169091175) 8.2 g/dL 6.3-8.2 ALBUMIN (test code = 2094917603) 4.9 g/dL 3.5-5.0 ALK PHOS (test code = 5811294865) 60 U/L 34-122 ALTv (test code = 1742-6) 126 U/L 5-50 H AST(SGOT) (test code = 9840209761) 52 U/L 13-40 H eGFR (test code = 4861605626) mL/min/1.73m2 ELMO (test code = ELMO) Association of [...] or abnormalities in imaging tests). Lab Interpretation (test code = 56641-5) [facility]:18[facility]12* Test Item Value Reference Range Interpretation Comme nts ALCOHOL (test code = 8650254037) <10 mg/dL ELMO (test code = ELMO) <10 [id number] Toxic>100 Depression of PROCESS SUPERVISOR>400 Fatalities Reported [facility][id number][facility]2021-08-23 08:12:10* Test Item Value Reference Range Interpretation Comme nts NA (test code = 6484825481) 137 mmol/L 135-145 K (test code = 5024283372) 4.2 mmol/L 3.5-5.0 CL (test code = 7113491866) 99 mmol/L 98-108 CO2 TOTAL (test code = 2578910248) 29 mmol/L 23-31 AGAP (test code = 7157552560) 2-16 BUN (test code = 7949571844) 17 mg/dL 7-23 GLUCOSE (test code = 4452874082) 162 mg/dL 70-110 H CREATININE (test code = 2465508537) 0.67 mg/dL 0.60-1.25 TOTAL BILI (test code = 9552308860) 0.6 mg/dL 0.1-1.1 CALCIUM (test code = 9053031626) 9.0 mg/dL 8.6-10.6 T PROTEIN (test code = 7430997903) 7.3 g/dL 6.3-8.2 ALBUMIN (test code = 3615377847) 4.5 g/dL 3.5-5.0 ALK PHOS (test code = 1499178599) 67 U/L 34-122 ALTv (test code = 1742-6) 120 U/L 5-50 H AST(SGOT) (test code = 3987303034) 47 U/L 13-40 H eGFR (test code = 6674765187) mL/min/1.73m2 ELMO (test code = ELMO) Association of [...] or abnormalities in imaging tests). Lab Interpretation (test code = 02604-2) Abnormal [facility] WITH [id number] 07:59:12* Test Item Value Reference Range Interpretation Comme nts WBC (test code = 6690-2) See_Comment [[employer] The system which generated this result transmitted reference range: 4.20 - 10.70 10*3/?L. The reference range was not used to interpret this result as normal/abnormal. RBC (test code = 789-8) See_Comment [Automated [employer]] The system which generated this result transmitted reference range: 4.26 - 5.52 10*6/?L. The reference range was not used to interpret this result as normal/abnormal. HGB (test code = 718-7) 15.0 g/dL 12.2-16.4 HCT (test code = 4544-3) 43.4 % 38.4-49.3 MCV (test code = 787-2) 87.1 fL 81.7-95.6 MCH (test code = 785-6) 30.1 pg 26.1-32.7 MCHC (test code = 786-4) 34.6 g/dL 31.2-35.0 RDW-SD (test code = 65988-6) 42.7 fL 38.5-51.6 RDW-CV (test code = 788-0) 13.4 % 12.1-15.4 PLT (test code = 777-3) See_Comment [Automated [employer]] The system which generated this result transmitted reference range: 150 - 328 10*3/?L. The reference range was not used to interpret this result as normal/abnormal. MPV (test code = 75300-5) 10.4 fL 9.8-13.0 NRBC/100 WBC (test code = 9899677725) See_Comment [Automated Goby ssage] The system which generated this result transmitted reference range: 0.0 - 10.0 /100 WBCs. The reference range was not used to interpret this result as normal/abnormal. NRBC x10^3 (test code = 6785158399) <0.01 See_Comment [Automated [employer]] The system which generated this result transmitted reference range: 10*3/?L. The reference range was not used to interpret this result as normal/abnormal. GRAN MAT (NEUT) % (test code = 770-8) 43.3 % IMM GRAN % (test code = 4585535022) 0.20 % LYMPH % (test code = 736-9) 45.2 % MONO % (test code = 5905-5) 8.6 % EOS % (test code = 713-8) 1.9 % BASO % (test code = 706-2) 0.8 % GRAN MAT x10^3(ANC) (test code = 3049795435) 3.71 10*3/uL 1.99-6.95 IMM GRAN x10^3 (test code = 6543075504) <0.03 0.00-0.06 LYMPH x10^3 (test code = 731-0) 3.88 10*3/uL 1.09-3.23 H MONO x10^3 (test code = 742-7) 0.74 10*3/uL 0.36-1.02 EOS x10^3 (test code = 711-2) 0.16 10*3/uL 0.06-0.53 BASO x10^3 (test code = 704-7) 0.07 10*3/uL 0.01-0.09 Lab Interpretation (test code = 59135-4) Abnormal [facility]"
--- NOTE | 2023-06-03 09:02 | EDPHYS ---
Physician Documentation [facility] Name: Tad Partida Jr Age: 22 yrs Sex: Male : 2000 Arrival Date: 06/03/2023 Time: 08:41 Bed 13 Private MD: ED Physician Sai Nickerosn HPI: 06/03 08:56 This 22 yrs old Male presents to ER via Ambulatory with complaints of Jaw Pain.ec2 08:56 Patient arrives today for evaluation of bilateral jaw dislocation. States that he was ec2 gone and subsequently felt that his jaw dislocated. Reports discomfort.. Historical: - Allergies: 08:48 No Known Drug Allergies; ll1 - PMHx: 08:48 jaw problems; ll1 - Immunization history:: Adult Immunizations up to date. - Social history:: Smoking status: Patient denies any tobacco usage or history of. ROS: 08:56 Constitutional: as per hpi ec2 Exam: 08:56 Constitutional: GEN: NAD Head: atraumatic Eyes: EOMI Ears: External ears are normal. ec2 Mouth: Unable to close mouth, no evidence of dental trauma. CV: regular rate LUNGS: no respiratory distress ABD: non-distended SKIN: no evidence of rashes MSK: no evidence of trauma NEURO: moves all extremities equally Vital Signs: 08:48 BP 155 / 94; Pulse 80; Resp 18; Temp 97.6; Pulse Ox 100% ; Weight 122.47 kg; Height 5 ll1 ft. 8 in. ; Pain 0/10; 08:54 BP 150 / 91; Pulse 77; Resp 17; Pulse Ox 99% on R/A; rs5 08:48 Body Mass Index 41.05 (122.47 kg, 172.72 cm) ll1 08:48 Pain Scale: Adult ll1 MDM: 08:47 Patient medically screened. ec2 08:56 Data reviewed: vital signs. ED course: Patient arrives today for evaluation of ec2 bilateral jaw dislocation. Examination remarkable for bilateral jaw dislocation. I attempted extraoral manipulation, patient states that he was uncomfortable, I state that we should do slight medication administration to help manipulate and loosen up the masseters however the patient states that he did not want medication and wanted to leave. Unclear what the desired outcome was if he would not allow external manipulation and movement and did not want medication. He states that he will leave, I will discharge him.. Administered Medications: No medications were administered Disposition Summary: 06/03/23 09:02 Discharge Ordered Condition: Stable ec2 Diagnosis - Mandibular Dislocation ec2 Followup: ec2 - With: Private Physician - When: - Reason: Recheck today's complaints Discharge Instructions: - Discharge Summary Sheet ec2 - Jaw Dislocation, [id number] ec2 Forms: - Medication Reconciliation Form ec2 - Thank You Letter ec2 - Antibiotic Education ec2 - Prescription Opioid Use ec2 - Patient Portal Instructions ec2 - Leadership Thank You Letter ec2 Signatures: Teresita Tomlinson RN RN ll1 Sai Nickerson MD MD ec2
--- NOTE | 2023-06-03 09:02 | ER ---
Nurse's Notes [facility] Name: Tad Partida Jr Age: 22 yrs Sex: Male : 2000 Arrival Date: 06/03/2023 Time: 08:41 Bed 13 Private MD: Diagnosis: Mandibular Dislocation Presentation: 06/03 08:48 Chief complaint: Patient states: Yawned at work 20 min [employer]. Jaw is stuck open now. ll1 Denies pain. Coronavirus screen: Client denies travel out of the [place] in the last 14 days. At this time, the client does not indicate any symptoms associated with coronavirus-19. Ebola Screen: Patient denies travel to an Ebola-affected area in the 21 days before illness onset. Initial Sepsis Screen: Does the patient meet any 2 criteria? No. Patient's initial sepsis screen is negative. Does the patient have a suspected source of infection? Yes: Bone or joint infection. Risk Assessment: Do you want to hurt yourself or someone else? Patient reports no desire to harm self or others. Onset of symptoms was June 03, 2023. 08:48 Method Of Arrival: Ambulatory ll1 08:48 Acuity: TITUS 3 ll1 Triage Assessment: 08:50 General: Appears uncomfortable, Behavior is calm, cooperative, appropriate for age. ll1 Pain: Denies pain. Musculoskeletal: Reports unable to move jaw/close jaw for 20 min [employer]. Historical: - Allergies: 08:48 No Known Drug Allergies; ll1 - PMHx: 08:48 jaw problems; ll1 - Immunization history:: Adult Immunizations up to date. - Social history:: Smoking status: Patient denies any tobacco usage or history of. Screenin:45 [facility] ED Fall Risk Assessment (Adult) History of falling in the last 3 months, rs5 including since admission No falls in past 3 months (0 pts) Confusion or Disorientation No (0 pts) Intoxicated or Sedated No (0 pts) Impaired Gait No (0 pts) Mobility Assist Device Used No (0 pt) Altered Elimination No (0 pt) Score/Fall Risk Level 0 - 2 = Low Risk Oriented to surroundings, Maintained a safe environment. Abuse screen: Denies threats or abuse. Nutritional screening: No deficits noted. Tuberculosis screening: No symptoms or risk factors identified. Assessment: 08:50 General: Appears in no apparent distress. uncomfortable, Behavior is calm, cooperative. rs5 Pain: Denies pain. Neuro: Level of Consciousness is awake, alert, obeys commands, Oriented to person, place, time, situation. Cardiovascular: Heart tones S1 S2 present Patient's skin is warm and dry. Rhythm is regular. Respiratory: Airway is patent Respiratory effort is even, unlabored, Respiratory pattern is regular, symmetrical, Breath sounds are clear bilaterally. GI: Abdomen is round non-distended, Bowel sounds present X 4 quads. Abd is soft and non tender X 4 quads. : No signs and/or symptoms were reported regarding the genitourinary system. EENT: Pt states "I yawned earlier, about an hour ago, and my jaw is now locked and stuck in an open position. This has happened before". Pt's mouth is open and pt denies ability to close jaw. Pt denies pain. Pt states "My jaw doesn't hurt, it's more of a discomfort". Derm: Skin is intact, Skin is dry, Skin is normal, Skin temperature is warm. Musculoskeletal: Range of motion: intact in all extremities. 08:55 Reassessment: Provider at bedside. rs5 Vital Signs: 08:48 BP 155 / 94; Pulse 80; Resp 18; Temp 97.6; Pulse Ox 100% ; Weight 122.47 kg; Height 5 ll1 ft. 8 in. ; Pain 0/10; 08:54 BP 150 / 91; Pulse 77; Resp 17; Pulse Ox 99% on R/A; rs5 08:48 Body Mass Index 41.05 (122.47 kg, 172.72 cm) ll1 08:48 Pain Scale: Adult ll1 ED Course: 08:43 Patient arrived in ED. rg4 08:44 Sai Nickerson MD is Attending Physician. ec2 08:46 Tomi Jones, SANGEETHA is Primary Nurse. rs5 08:48 Arm band placed on Patient placed in an exam room, on a stretcher. ll1 08:50 Triage completed. ll1 08:55 Patient has correct armband on for positive identification. Bed in low position. Call rs5 light in reach. Side rails up X2. 09:04 No provider procedures requiring assistance completed. Patient did not have IV access rs5 during this emergency room visit. Administered Medications: No medications were administered Medication: 08:56 VIS not applicable for this client. rs5 Outcome: 09:02 Discharge ordered by . ec2 09:04 Discharged to home ambulatory, rs5 09:04 Condition: stable 09:04 Discharge instructions given to patient, Instructed on discharge instructions, follow up and referral plans. Demonstrated understanding of instructions, follow-up care, 09:05 Patient left the ED. rs5 Signatures: Rosana Monaco rg4 Teresita Tomlinson RN RN ll1 Tomi Jones RN RN rs5 Sai Nickerson MD MD ec2 Corrections: (The following items were deleted from the chart) 08:54 08:50 EENT: No signs and/or symptoms were reported regarding the EENT system. rs5 rs5
[2023-06-03 09:52] VITALS: BP 150/91; TEMP 97.6; O2SAT 99
== END ==
LOC: ER 08:41
DX: S03.03XA Dislocation of jaw, bilateral, initial encounter (principal)
CPT/HCPCS: 99282